=== PATIENT | female | born 1985 | race Caucasian/White ===

== ENCOUNTER 2016-04-13 05:38 | Inpatient (IN) | payer OTHER ==
[2016-04-13] MEDS ORDERED: CITRIC ACID/SODIUM CITRATE 30 ML UDCUP PO ONE (05:48)
[2016-04-13] MEDS ORDERED: ceFAZolin 2 GM/DEXTROSE 100 ML IV ONE (05:48)
[2016-04-13] MEDS ORDERED: LR 500 ML IV ONE (05:48)
[2016-04-13] MEDS ORDERED: LR 1,000 ML IV SCH (06:00)
[2016-04-13] MEDS ORDERED: MISOPROSTOL 200 MCG TAB ONE (06:39)
[2016-04-13] MEDS ORDERED: AMMONIA AROMATIC 1 EACH AMP IH ONE (06:39)
[2016-04-13] MEDS ORDERED: OXYTOCIN 10 UNIT/ML VIAL ONE (06:39)
[2016-04-13] MEDS ORDERED: TERBUTALINE SULFATE 1 MG/ML VIAL ONE (06:39)
[2016-04-13] MEDS ORDERED: fentaNYL 100 MCG/2 ML INJ IVP PRN (07:14)
[2016-04-13] MEDS ORDERED: ONDANSETRON 4 MG/2 ML VIAL IVP PRN (07:14)
[2016-04-13] MEDS ORDERED: DEXAMETHASONE 4 MG/ML VIAL ONE (07:33)
[2016-04-13] MEDS ORDERED: ONDANSETRON 4 MG/2 ML VIAL ONE (07:33)
[2016-04-13] MEDS ORDERED: morphINE PF 5 MG/10 ML INJ ONE (07:33)
[2016-04-13] MEDS ORDERED: PROMETHAZINE HCL 25 MG/ML INJ IVP PRN (07:34)
[2016-04-13] MEDS ORDERED: fentaNYL 100 MCG/2 ML INJ ONE (07:35)
[2016-04-13] MEDS ORDERED: OXYTOCIN 100 UNITS/10 ML VIAL ONE (07:35)
[2016-04-13] MEDS ORDERED: BISACODYL 10 MG SUPP PR PRN (07:36)
[2016-04-13] MEDS ORDERED: LACTULOSE 20 GM/30 ML UDCUP PO PRN (07:36)
[2016-04-13] MEDS ORDERED: MAGNESIUM HYDROXIDE 30 ML UDCUP PO PRN (07:36)
[2016-04-13] MEDS ORDERED: POLYETHYLENE GLYCOL 3350 17 GM PKT PO PRN (07:36)
[2016-04-13] MEDS ORDERED: PHENYLEPHRINE HCL 100 MCG/ML SYR ONE (08:09)
--- NOTE | 2016-04-13 08:49 | OBPROC ---
- Delivery Pre-op Diagnoses: Repeat C/S Post-op Diagnoses: Repeat C/S Procedure: Repeat Surgeon: Na Lares Boat Hand: Nae Marquez Anesthesiologist: Wai Yancey Manufacturing Lead/FILM MASKER: Deepika Vidales Anesthesia: Spinal Complications: None IV Fluid (ml): 2,000 EBL: 800 - Info Infant A Delivery Date: 04/13/16 Delivery Time: 08:31 Sex of Infant: Female Score (1 Min): 8 Score (5 Min): 9
[2016-04-13] MEDS: KETOROLAC 30 MG/1 ML SDV IVP SCH ×2 (10:40→18:27)
[2016-04-13] MEDS: OXYCODONE/APAP 5/325 TAB PO PRN ×3 (11:37→22:26)
--- NOTE | 2016-04-13 11:51 | GOP ---
[f rep st] OPERATIVE REPORT DATE OF OPERATION: 04/13/2016 SURGEON: Na Bell MD BEHAVIOR MANAGEMENT SPECIALIST: Nae Marquez CNM ANESTHESIA: Spinal. PREOPERATIVE DIAGNOSIS: Intrauterine at 39 weeks' gestation with previous section, desires repeat. POSTOPERATIVE DIAGNOSIS: Intrauterine at 39 weeks' gestation with previous section, desires repeat. PROCEDURE PERFORMED: Repeat low transverse section. FINDINGS: Viable female , Apgars 8 and 9. Normal uterus, fallopian tubes , and ovaries. ESTIMATED BLOOD LOSS: 800 mL. INDICATIONS: The patient is a 30-year-old G4, P1, female who presents for repeat section for previous section. DESCRIPTION OF PROCEDURE: The patient was taken to the operating room, where she was prepped and draped in normal sterile fashion in the dorsal supine position with a leftward tilt. A surgical time-out was performed, verifying the patient's name, date of , planned procedure, and site. The patient received 2 g of Ancef preoperatively. A Pfannenstiel skin incision was made with a scalpel, and carried through to the underlying fascia. The fascia was incised in the midline and extended laterally. The superior aspect of the fascia was grasped with the Brandi clamps. The rectus muscles dissected off bluntly, and with the Bovie cautery. The inferior aspect of the fascia was grasped with Brandi clamps. The rectus muscles dissected off bluntly and with the Bovie cautery. The peritoneum was identified and entered in bluntly. The peritoneum was divided. The bladder blade was placed. The vesicouterine peritoneum was incised with the Metzenbaum scissors. The bladder flap was created digitally. The bladder blade was replaced. The uterus was incised with a scalpel. The uterine incision was extended laterally. The was delivered. The cord was clamped and cut. The was handed to the nurse practitioner. Cord blood was obtained. Placenta was delivered spontaneously. The uterus was exteriorized and cleared of all clots and debris. The uterine incision was reapproximated with 0 Monocryl in a running locked fashion. The uterus was returned to the abdomen. The gutters were cleared of all clots and debris. The uterine incision was reinspected and noted to be hemostatic. The subfascial spaces were inspected and noted to be hemostatic. The fascia was reapproximated with 0 Vicryl in a running fashion. The subcutaneous tissue was irrigated and closed with 3-0 Vicryl, and the skin was closed with 4-0 Monocryl. All counts were correct x2. The patient tolerated the procedure well. COMPLICATIONS: None. OUTCOME: Stable to the recovery room. /[id number]/MODL MTDD
[2016-04-14] MEDS: KETOROLAC 30 MG/1 ML SDV IVP SCH ×2 (00:28→06:50)
[2016-04-14] MEDS: SIMETHICONE 80 MG TAB CHEW PO PRN ×2 (00:28→09:15)
[2016-04-14] MEDS: OXYCODONE/APAP 5/325 TAB PO PRN ×6 (02:39→22:37)
[2016-04-14 07:29] LABS: % IMMATURE GRANULYOCYTES 1.4 % (0.0-1.1); ABSOLUTE IMMATURE GRANULOCYTES 0.17 10^3/uL (0.00-0.10); ADD DIFF? NO; ADD MORPH? NO; ADD SCAN? NO; ATYPICAL LYMPHOCYTE FLAG 0 (0-99); FRAGMENT RBC FLAG 0 (0-99); HEMATOCRIT 29.6 % (38.0-47.0); LEFT SHIFT FLG 10 (0-99); LIPEMIA HEMOLYSIS FLAG 90 (0-99); MEAN CELL HEMOGLOBIN 35.2 pg (27.9-34.1); MEAN CELL HEMOGLOBIN CONCENTR. 33.8 g/dL (32.4-36.7); MEAN CELL VOLUME 104.2 fL (81.5-99.8); MEAN PLATELET VOLUME 10.8 fL (8.7-11.7); PLATELET CLUMPS FLAG 0 (0-99); PLATELET COUNT 147 10^3/uL (150-400); RED BLOOD CELL COUNT 2.84 10^6/uL (4.18-5.33)
[2016-04-14] MEDS: DOCUSATE SODIUM 100 MG CAP PO PRN ×2 (09:15→22:38)
--- NOTE | 2016-04-14 12:29 | SOAPPROG ---
SOAP Progress Note Assessment/Plan: Assessment: POD#1, doing well BPs on lower side, Hct appropriate, UOP appropiate. Continue to monitor. Rh pos, Rub imm Flu vaccine declined antepartum. s/p Tdap Plan: Routine post-op care If feeling dizzy once she increases ambulation will repeat CBC Thyroid US at her request in preparation for upcoming thyroid surgery Iron therapy 04/14/16 12:26 04/14/16 12:30 Subjective: BF going well. In pain but the pills (percocet) helped this morning, due for another dose now. Small amount of flatus. Just had catheter removed, hasn't voided yet. Did get up to chair, felt OK but a little woozy. Lochia appropriate , had some pooling from overnight but now slowed down. Tolerated regular breakfast. Objective: Vital Signs Temp Pulse Resp BP Pulse Ox 36.5 C 84 16 90/54 L 96 04/14/16 08:30 04/14/16 08:30 04/14/16 08:30 04/14/16 08:30 04/14/16 08:30 Laboratory Results 04/14/16 06:47 04/13/16 04/14/16 04/15/16 05:59 05:59 05:59 Intake Total 1800 600 Output Total 3550 1400 Balance -1750 -800 Gen: alert, awake, NAD Resp: unlabored CV: RRR Abd: soft, appropriately tender, + bowel sounds, mild appropriate distention Incision: c/d/i with steri-strips Ext: no edema ICD10 Worksheet Patient Problems: Problems Problem Status Diagnosed Acute
[2016-04-14] MEDS: IBUPROFEN 600 MG TAB PO PRN ×2 (12:53→18:58)
[2016-04-15] MEDS: IBUPROFEN 600 MG TAB PO PRN ×5 (01:33→21:11)
[2016-04-15] MEDS: OXYCODONE/APAP 5/325 TAB PO PRN ×6 (01:33→21:56)
[2016-04-15 01:38] VITALS: RESP 16
--- NOTE | 2016-04-15 07:52 | SOAPPROG ---
SOAP Progress Note Assessment/Plan: Assessment: 30 y.o. female s/p repeat LTCS post-op day #2. Recovering well with good pain control and minimal vaginal bleeding. . Plan: Routine / post-op care. consult. 04/15/16 07:47 Subjective: Reports feeling well with good pain control and minimal vaginal bleeding. well. Eating and drinking well without nausea or vomiting. Has been out of bed and ambulating without vertigo. Appropriate mood with good support system. Objective: Vital Signs Temp Pulse Resp BP Pulse Ox 37.0 C 93 16 99/64 L 93 04/15/16 01:38 04/15/16 01:38 04/15/16 01:38 04/15/16 01:38 04/15/16 01:38 Laboratory Results 04/14/16 06:47 04/14/16 04/15/16 04/16/16 05:59 05:59 05:59 Intake Total 1800 600 Output Total 3550 1800 Balance -1750 -1200 - Time Spent With Patient Time Spent With Patient: 20 minutes - Pending Discharge Pending Discharge Within 24 Hours: Yes Pending Discharge Within 48 Hours: No Pending Discharge Date: 04/16/16 Pending Discharge Time: 11:00 Physical Exam - Physical Exam General Appearance: WD/WN, alert, no apparent distress EENT: normal ENT inspection Neck: non-tender, full range of motion Respiratory: chest non-tender, lungs clear Cardiac/Chest: normal peripheral pulses, regular rate, rhythm Abdomen: normal bowel sounds, non-tender, soft Pelvic Exam: normal external exam Rectal: deferred Back: Normal inspection Skin: normal color, warm/dry Lymphatic: no adenopathy Extremities: normal range of motion, non-tender Neuro/Psych: alert, normal mood/affect, oriented x 3 ICD10 Worksheet Patient Problems: Problems Problem Status Diagnosed Acute
[2016-04-15] MEDS: FERROUS SULFATE 325 MG TAB PO SCH (08:27)
[2016-04-15] MEDS: DOCUSATE SODIUM 100 MG CAP PO PRN ×2 (08:27→20:43)
[2016-04-15 08:58] VITALS: O2SAT 99
--- NOTE | 2016-04-15 09:08 | US ---
Thyroid Ultrasound History: History of right-sided thyroid cancer, thyroidectomy scheduled for May 08, history of benig n right level 2 lymph node biopsy. Comparison: Thyroid ultrasound October 09, 2015, thyroid biopsy October 22, 2015. Technique: Longitudinal and transverse ultrasound imaging of the thyroid gland. Findings: The right lobe of the thyroid measures 5.2 x 2.6 x 2.0 cm. A 3.5 x 2.8 x 1.9 cm heterogene ous right thyroid nodule is not significantly changed in size. The left lobe of the thyroid measures 1.3 x 0.8 x 3.5 cm. The left lobe of the thyroid is homogeneou s with no nodules identified. The isthmus is normal. Lymph nodes in the neck appear stable since the comparisons, including a 1.1 x 0.5 x 2.2 cm left level 2 node. Impression: Stable examination with mildly prominent cervical lymph nodes and a biopsy-proven 3.5 cm right thyroid cancer.
[2016-04-15] MEDS: SIMETHICONE 80 MG TAB CHEW PO PRN (20:43)
[2016-04-16] MEDS: IBUPROFEN 600 MG TAB PO PRN ×2 (03:18→09:07)
[2016-04-16] MEDS: OXYCODONE/APAP 5/325 TAB PO PRN ×2 (03:19→08:04)
[2016-04-16] MEDS: FERROUS SULFATE 325 MG TAB PO SCH (08:04)
[2016-04-16] MEDS: DOCUSATE SODIUM 100 MG CAP PO PRN (08:04)
--- NOTE | 2016-04-16 08:52 | SOAPPROG ---
SOAP Progress Note Assessment/Plan: Assessment: 30 yo s/p ltcs, pod 3, ready for discharge Plan: 04/16/16 08:51 Rh +, rubella immune, routine postop care. Subjective: 30 yo s/p ltcs, pod 3, ready for discharge Objective: Vital Signs Temp Pulse Resp BP Pulse Ox 36.8 C 90 16 88/64 L 99 04/15/16 08:20 04/15/16 08:20 04/15/16 08:20 04/15/16 08:20 04/15/16 08:20 Laboratory Results 04/14/16 06:47 04/15/16 04/16/16 04/17/16 05:59 05:59 05:59 Intake Total 600 600 Output Total 1800 900 Balance -1200 -300 Physical Exam - Physical Exam General Appearance: no apparent distress Respiratory: lungs clear Cardiac/Chest: regular rate, rhythm Abdomen: non-tender Skin: warm/dry Neuro/Psych: oriented x 3 ICD10 Worksheet Patient Problems: Problems Problem Status Diagnosed Acute
[2016-04-16 11:26] VITALS: BP 92/68; PULSE 78; TEMP 97.8
== END 2016-04-16 12:30 | disposition home or self-care (01) | DRG 766 ==
LOC: FLD 05:38 → FOB 12:08
PROVIDERS: ADMIT Obstetrics & Gynecology; ATTEND Obstetrics & Gynecology
PROC: 10D00Z1 Extraction of Products of Conception, Low, Open Approach (ICD-10-PCS; principal; 2016-04-13)
DX: O34.211 Maternal care for low transverse scar from previous cesarean delivery (principal); Z3A.39 39 weeks gestation of pregnancy; Z37.0 Single live birth
CPT/HCPCS: J0690; J1100; J1885; J2274; J2370; J2405; J2590; J3010; J3105

== ENCOUNTER → 2018-07-19 | Outpatient (CLI) | payer OTHER | LOC: FIMAGING 14:32 | PROVIDERS: ATTEND Internal Medicine Endocrinology, Diabetes & Metabolism | DX: R59.9 Enlarged lymph nodes, unspecified (principal); Z85.850 Personal history of malignant neoplasm of thyroid; Z98.890 Other specified postprocedural states ==